=== PATIENT | female | born 1950 | race Caucasian/White ===

== ENCOUNTER 2018-01-09 05:48 | Day surgery (SDC) | payer OTHER ==
[~2018-01-09 05:48] MED LIST: AMBIEN10 MG PO; GLUCOTROL10 MG PO; NORVASC5 MG PO; PROTONIX40 MG PO; SYNTHROID200 MCG PO; ZANTAC300 MG PO
== END 2018-01-09 11:45 | disposition home or self-care (01) ==
LOC: CIR.AMB 05:48
DX: M75.121 Complete rotator cuff tear or rupture of right shoulder, not specified as traumatic (principal); M13.811 Other specified arthritis, right shoulder